=== PATIENT | female | born 1975 | race Caucasian/White ===

== ENCOUNTER 2022-10-10 11:28 | Outpatient (CLI) | payer BC, SELFPAY ==
[2022-10-10 13:48] LABS: Clue Cells No Clue Cells Seen (None Seen); Trichomonas No Trichomonas Seen (None Seen); Yeast No Yeast Seen (None Seen)
== END 2022-10-10 11:29 | disposition home or self-care (01) ==
PROVIDERS: PCP Family Medicine; Visit Provider Family Medicine
DX: N89.8 Other specified noninflammatory disorders of vagina (principal)
CPT/HCPCS: 87109; 87210

== ENCOUNTER 2023-12-18 09:24 | Outpatient (CLI) | payer BC, SELFPAY ==
--- OUTSIDE RECORDS SUMMARY | 2023-12-18 09:29 | XMS_ITS | Encounter Summary ---
Author Name Unknown Organization [facility] Address [address] [place] [address] Care Team Providers Care Grinding Supervisor Name Role Phone Unavailable Primary Care Provider Unavailabl e Reason for Visit * Reason Onset Date Comments Vaginal Discharge 06/07/2023 Encounter Details Date Type Department Care Team (Late st Contact Info) Description 06/07/2023 Nurse Triage Department of Family Medicine, [facility], in [place], [place] [address] [place] [phone] Jessy Alegria R.N. [address] [place] [phone] Vaginal Discharge Social History Tobacco Use Types Packs/Day Years Used Date Smoking Tobacco: Every Day Cigarettes 0.5 Smokeless Tobacco: Never Alcohol Use Standard Drinks/Week Comments Yes 0 (1 standard drink = 0.6 oz pur e alcohol) Nutrition Answer Date Recorded Nutrition: EVOO Fat Source Unknown 01/19 Nutrition: Servings of Fruits/Vegetables per Day Not on file 01/19/2021 Dental Answer Date Recorded Dental: Regular Dentist Unknown 01/20/20 21 Sex and Gender Information Value Date Recorded Sex Assigned at Not on file Gender Identity Not on file Sexual Orientation Not on file documented as of this encounter Miscellaneous Notes * Telephone Encounter - Jessy Alegria R.N. - 06/07/2023 12:44 PM CDT Chief Complaint / Reason for Call Patient is a 47 y.o. female calling regarding Vaginal Discharge. Assessment Concern: States believes may have BV, reports vaginal discharge that smells foul, reports some associated intermittent pelvic pain & night sweats, denies fever, denies itching, denies pain with urination Present for: 3 days Home cares tried: nothing Calling to request: appointment The recommended disposition is See a health care provider within 24 hours. Patient was warm transferred toNaida Patient Appointment Director Supply Chain at the clinic for further assistance. If clinic appointment is not available in the next 24 hours, caller is advised tayler seen in emergency department. Care Advice Patient/Caregiver understands and will follow care advice?: Yes, able to teach back SEE PCP WITHIN 24 HOURS: * IF OFFICE WILL BE OPEN: You need to be examined within the next 24 hours. Call your doctor (or SCHEDULING MANAGER/PA) when the office opens and make an appointment. * IF OFFICE WILL BE CLOSED: You need to be seen within the next 24 hours. A clinic or an urgent care center is often a good source of care if your doctor's office is closed or you can't get an appointment. * IF PATIENT HAS NO PCP: Refer patient to a clinic or urgent care center. Also try to help caller find a PCP for future care. NOTE TO TRIAGER: * Use nurse judgment to select the most appropriate source of care. * Consider both the urgency of the patient's symptoms AND what resources may be needed to evaluate and manage the patient. DO NOT: * DO NOT DOUCHE. Douching does not help vaginitis, and may actually make it worse. * DO NOT USE ANY VAGINAL CREAMS during the 24 hours before your physician appointment. Reason: interferes with examination. NOTE TO TRIAGER - PREVENTION OF SEXUALLY TRANSMITTED INFECTION (STI): * Tell patient to either (1) not have sexual intercourse or (2) be sure the partner uses a condom until the problem has been diagnosed and treated. * If an STI is strongly suspected, encourage caller to tell the sexual partner to also obtain a medical evaluation. NOTE TO TRIAGER - REFERRAL TO [facility] DEPARTMENT - NO DOCTOR: * If the patient doesn't have a doctor (or SCHEDULING MANAGER/PA), it may be helpful to provide the phone number ofa [facility] * PHONE NUMBER for sexually transmitted infection (STI) clinic at [facility] [id number]. Reason for Disposition [1] Mild lower abdominal pain comes and goes (cramps) AND [2] lasts > 24 hours Protocols used: Vaginal [id number] documented in this encounter Plan of Treatment Not on file documented as of this encounter Visit Diagnoses Not on filedocumented in this encounter Additional Health Concerns Assessment Noted Time PHQ-9 Depression Total Score: 3 03/05/20 13 3:18 PM CDT documented as of this encounter
--- OUTSIDE RECORDS SUMMARY | 2023-12-18 09:29 | XMS_ITS | Encounter Summary ---
Author Name Unknown Organization [facility] Address [address] [place] [address] Care Team Providers Care Willow Machine Operator Name Role Phone Unavailable Primary Care Provider Unavailabl e Encounter Details Date Type Department Care Team (Late st Contact Info) Description 07/18/2023 Clinical Communication Department of Obstetrics and Gynecology in [address] [place] [address] Caprice Molina, PROPERTY AND EQUIPMENT CLERK, C.N.P. [address], [place] [phone] Social History Tobacco Use Types Packs/Day Years [...] encounter Miscellaneous Notes * Telephone Encounter - Miguel Levine R.N. - 07/18/2023 3:56 PM CDT Patient had questions about labs ordered on visit at 07/12. Specifically she wanted to know about another vitamin B lab other than the B12 Assay that is ordered. documented in this encounter Plan of Treatment Not on file documented as of this encounter Visit Diagnoses Not on filedocumented in this encounter Additional Health Concerns Assessment Noted Time PHQ-9 Depression Total Score: 3 03/05/20 13 3:18 PM CDT documented as of this encounter
--- OUTSIDE RECORDS SUMMARY | 2023-12-18 09:29 | XMS_ITS | Encounter Summary ---
Author Name Unknown Organization [facility] Address [address] [place] [address] Care Team Providers Care Rug Drying Machine Operator Name Role Phone Unavailable Primary Care Provider Unavailabl e Encounter Details Date Type Department Care Team (Late st Contact Info) Description 07/17/2023 Orders Only Department of Obstetrics and Gynecology in [place], [place] [address] [place] [address] Caprice Molina, CHILD PSYCHOMETRIST, C.N.P. [address] [place] [phone] Infection Ureaplasma (Primary Dx) Social History Tobacco Use Types Packs/Day Years [...] on file documented as of this encounter Plan of Treatment Not on file documented as of this encounter Visit Diagnoses Diagnosis Infection Ureaplasma- Primary documented in this encounter Additional Health Concerns Assessment Noted Time PHQ-9 Depression Total Score: 3 03/05/20 13 3:18 PM CDT documented as of this encounter
--- OUTSIDE RECORDS SUMMARY | 2023-12-18 09:29 | XMS_ITS | Clinical Summary ---
Author Name Unknown Organization [facility] Address [address] [place] [address] Care Team Providers Care Block Splitter Operator Name Role Phone Unavailable Primary Care Provider Unavailabl e Source Comments Patient records contain information from all sites at [facility]. For routine questions regarding patient records, call [phone] during business hours, M-F 8:00 AM - 5:00 PM Central Time. Record requests for emergency care only can be directed to [phone] at any time.[facility] Allergies Active Allergy Reactions Criticality Noted Date Comments Doxycycline Monohydrate Rash 10/25/2022 Amoxicillin Rash 01/08/2008 doesn't feel well Ciprofloxacin Rash 08/03/2009 Influenza Virus Vaccines Other (see comments) High 05/20/2019 Family member from the influenza vaccine. Advised to not get vaccinated against flu. Levofloxacin Rash 07/27/2016 Medications Medication Sig Dispensed Refills Start Date End Date Status albuterol 90 mcg/actuation inhaler Inhale. 0 08/15/2018 Active DULoxetine (CYMBALTA) [address] capsule Take 60 mg by mouth. 0 11/20/2019 Acti ve ibuprofen (ADVIL,MOTRIN) 800 mg tablet Take 800 mg by mouth. 0 03/12/2018 Active LORazepam (ATIVAN) 2 mg tablet TK 1 T PO HS 0 07/20/2020 Active rizatriptan SENIOR ELECTRICAL DESIGN ENGINEER (MAXALT-SENIOR ELECTRICAL DESIGN ENGINEER) [address] 10 mg under the tongue. 0 06/04/2018 Active cetirizine-pseudoeph edrine (ZyrTEC-D 12-hour) 5-120 mg per 12 hr tablet Take 1 tablet by mouth 2 (two) times a day. 0 Active olopatadine (PATADAY) 0.2 % ophthalmic solution 0 07/22/2022 Activ e cholecalciferol, vitamin D3, (cholecalciferol) 25 mcg (1,000 Unit) tablet Take 25 mcg by mouth daily. 0 Active metroNIDAZOLE (METROGEL) 0.75 % (37.5mg/5 gram) vaginal gelIndications:Vagin osis Bacterial Insert 1 applicatorful intravaginally at bedtime weekly for 3-6 months. 70 g 3 07/12/2023 Active azithromycin (ZITHROMAX) 500 mg tabletIndications:In fection Ureaplasma Take 1000 mg (2 tabs) on day 1, followed by 500 mg (1 tab) once daily on days 2 through 4. 5 tablet 0 07/17/2023 Active Active Problems Problem Noted Date Diagnosed Date Urinary Urge Incontinence 07/27/2022 Other Specified Menopausal And Perimenopausal Di sorders 09/09/2020 Immunizations Name Administration Dates Next Due PPSV23 11/13/2017 Tdap 11/25/2010 Family History Medical History Relation Name Comments Emphysema Mother Stroke Mother Relation Name Status Comments Mother Social History Tobacco Use Types Packs/Day Years Used Date Smoking Tobacco: Every Day Cigarettes 0.5 Smokeless Tobacco: Never Tobacco Cessation:Ready to Q uit: Not Asked; Counseling Given: Not Answered Alcohol Use Standard Drinks/Week Comments Yes 0 [...] on file Sexual Orientation Not on file Last Filed Vital Signs Vital Sign Reading Time Taken Comments Blood Pressure 100/54 07/12/2023 11:31 AM CDT Pulse 71 06/07/2023 3:51 PM CDT Temperature 36.3 ??C (97.4 ??F) 06/07/2023 3:51 PM CD T Respiratory Rate 16 06/07/2023 3:51 PM CDT Oxygen Saturation - - Inhaled Oxygen Concentration - - Weight 72.1 kg (159 lb 1 oz) 07/12/2023 11:31 AM CDT Height 158 cm (5' 2.21) 09/21/2017 1:38 AM CDT Body Mass Index 28.9 09/21/2017 1:38 AM CDT Plan of Treatment Health Maintenance Due Date Last Done Comments CT Colonography 1974 Cologuard 1974 Colonoscopy 1974 Colorectal Cancer Screening 1974 FIT 1974 Hepatitis B Vaccines (1 of 3 - 3-dose series) 1974 COVID-19 Vaccine (#1) 1974 Pneumococcal vaccine (0-64 y ears) (2 of 2 - PCV) 11/13/2018 11/13/2017 DTaP,Tdap,and Td Vaccines (2 - Td or Tdap) 11/25/2020 11/25/2010 Lipid (Cholesterol) Screening 03/24/2021 03/24/2016 Tobacco Cessation counseling 07/27/2023 07/27/2022 Depression Screening (Annual PHQ-2) 11/19/2023 Mammogram 02/22/2024 02/21/2023, 11/19, 11/08/2020, Additional history exists Fasting Glucose for Diabetes Screening 07/27/2025 07/27/2022, 07/27/2022, 12/11/2020, Additional history exists
--- OUTSIDE RECORDS SUMMARY | 2023-12-18 09:29 | XMS_ITS | Encounter Summary ---
Author Name Unknown Organization [facility] Address [address] [place] [address] Care Team Providers Care Retoucher Name Role Phone Unavailable Primary Care Provider Unavailabl e Reason for Visit * Reason Comments Vaginal Discharge With strong odor and yellowish discharge x 3-4 days * Appointment Request (Routine) - Closed Specialty Diagnoses / Procedures Referred By Kyle chase Referred To Contact Family Medicine Referral ID Status Reason Start Date Expiration Date Visits Re quested Visits Authorized [id number] Closed 06/07/2023 06/06/2024 1 1 Encounter Details Date Type Department Care Team (Late st Contact Info) Description 06/07/2023 4:00 PM CDT Office Visit Department of Family Medicine, [facility], in [place], [place] [address] [phone] Pipe Quiroga, P.A.-Polly., P.A. [address] [phone] Discharge Vaginal (Primary Dx); Vaginosis Bacterial Social History Tobacco Use Types Packs/Day Years [...] on file documented as of this encounter Last Filed Vital Signs Vital Sign Reading Time Taken Comments Blood Pressure 104/68 06/07/2023 3:51 PM CDT Pulse 71 06/07/2023 3:51 PM CDT Temperature 36.3 ??C (97.4 ??F) 06/07/2023 3:51 PM CD T Respiratory Rate 16 06/07/2023 3:51 PM CDT Oxygen Saturation - - Inhaled Oxygen Concentration - - Weight 72.4 kg (159 lb 9.8 oz) 06/07/2023 3:51 P M CDT Height - - Body Mass Index 29 09/21/2017 1:38 AM CDT documented in this encounter Patient Instructions * Attachments The following attachments cannot be sent through Care Everywhere. * Vaginal Health (Cuban) documented in this encounter Progress Notes * Pipe Quiroga, Samanta-Polly., P.A. - 06/07/2023 4:00 PM CDT SUBJECTIVE CHIEF COMPLAINT / REASON FOR VISIT Aamir Landon is a 47 y.o. female who presents for evaluation of Vaginal Discharge (With strong odor and yellowish discharge x 3-4 days ). HISTORY OF PRESENT ILLNESS Patient is a pleasant well-appearing 47-year-old female presenting clinic today with concerns for strong foul smelling yellowish discharge from the vagina with lower abdominal pain. Symptoms for 4 days unchanged. Started with hot and cold flashes initially but least from massage resolved. Has not had a fever. Mentions dry cough about the same time symptoms started but this is subsided substantiall y. Denies any bleeding. No genital sores. No nausea vomiting diarrhea, constipation. No urinary symptoms. Denies flank pain but mentions some generalized lower back pain she relates to bending over gardening. Denies possibility of and no history or concerns for STDs. Not sexually active. She does have a history of yeast infections and bacterial vaginosis. Treatment with tea tree oil REVIEW OF SYSTEMS All other systems reviewed and are negative. OBJECTIVE PHYSICAL EXAM Vitals and nursing note reviewed. Exam conducted with a php software engineer present (Pat Alisa). Constitutional General: She is not in acute distress. Appearance: Normal appearance. She is not ill-appearing. HENT Head: Normocephalic and atraumatic. Right Ear: Tympanic membrane, ear canal and external ear normal. Left Ear: Tympanic membrane, ear canal and external ear normal. Nose: Nose normal. Mouth/Throat: Mouth: Mucous membranes are moist. Pharynx: Oropharynx is clear. Eyes General: No scleral icterus. Conjunctiva/sclera: Conjunctivae normal. Pupils: Pupils are equal, round, and reactive to light. Cardiovascular Rate and Rhythm: Normal rate and regular rhythm. Heart sounds: Normal heart sounds. No murmur heard. No friction rub. No gallop. Pulmonary Effort: Pulmonary effort is normal. Breath sounds: Normal breath sounds. No wheezing, rhonchi or rales. Abdominal General: Bowel sounds are normal. There is no distension. Palpations: Abdomen is soft. There is no mass. Tenderness: There is no abdominal tenderness. There is no right CVA tenderness, left CVA tendernessor guarding. Genitourinary Labia: Right: No lesion. Left: No lesion. Vagina: Vaginal discharge (Copious thick white malodor) present. Musculoskeletal Cervical back: Normal range of motion and neck supple. Lymphadenopathy Cervical: No cervical adenopathy. Skin General: Skin is warm and dry. Neurological Mental Status: She is alert. ASSESSMENT / PLAN #1 Discharge Vaginal Shared with the patient the exam findings and concerns. Did will obtain vaginitis panel. Discussed with the patient etiology and prognosis of Trichomonas, bacterial vaginosis, yeast. Also discussed treatments for each of these as well as proper use of medication was possible side effects. Will hold off on prescription pending test results. Will call the patient and notify of test results and confirmed treatment plan at that point. If test results negative advise symptomatic care close monitoring of symptoms. Discussed hand hygiene, bathroom etiquette, feminine hygiene. If symptoms worsen or do not improve, they are to seek further medical attention. Patient's questions were answered. They voiced understanding and agree to this plan. Pipe Quiroga P.A.-C., P.A. Addendum 06/07/2023 at 6:08 p.m. Patient notified via telephone of test results positive for bacterial vaginosis. Confirmed the etiology prognosis of bacterial vaginosis as well as treat with metronidazole. Shared his proper use possible side effects. Advise hand hygiene, bathroom hygiene, feminine hygiene. Advise if symptoms persist following up with primary care OB Gyne. Questions answered. She voiced understanding and agrees this plan. Pipe Quiroga PA-C documented in this encounter Plan of Treatment Not on file documented as of this encounter Procedures Procedure Name Priority Date/Time Associated Diagnosis Comments VAGINITIS PANEL Routine 06/07/2023 4:26 PM CDT Discharge Vaginal documented in this encounter Results * (ABNORMAL) Vaginitis Panel (06/07/2023 4:26 PM CDT) Marium species, DNA Negative Negative 06/07/2023 5:28 PM CDT OWAT Gardnerella vaginalis, DNA Positive(A) Negative 06/07/2023 5:28 PM CDT OWAT Trichomonas vaginalis, DNA Negative Negative 06/07/2023 5:28 PM CDT OWAT Swab (Vagina) 06/07/2023 4:2 6 PM CDT 06/07/2023 4:35 PM CDT Pipe Quiroga P.A.-C., P.A. [facility] - GENERAL ORDERABLES [facility] [address] [place] [address], [facility] OWAT [facility] in [place] [address] [place] [address] documented in this encounter Visit Diagnoses Diagnosis Discharge Vaginal- Primary Vaginosis Bacterial documented in this encounter Additional Health Concerns Assessment Noted Time PHQ-9 Depression Total Score: 3 03/05/20 13 3:18 PM CDT documented as of this encounter
--- OUTSIDE RECORDS SUMMARY | 2023-12-18 09:29 | XMS_ITS | Encounter Summary ---
Author Name Unknown Organization [facility] Address [address] [place] [address] Care Team Providers Care Airline Stewardess Name Role Phone Unavailable Primary Care Provider Unavailabl e Reason for Visit * Reason Onset Date Comments Results 07/13/2023 Vaginitis panel Encounter Details Date Type Department Care Team (Latest Contact Info) Description 07/13/2023 Clinical Communication Department of Obstetrics and Gynecology in [place], [place] [address] [phone] Caprice Molina, NARCISO, C.N.P. [address] [phone] Results (Vaginitis panel/) Social History Tobacco Use Types Packs/Day Years [...] encounter Miscellaneous Notes * Telephone Encounter - Jacklyn Fox R.N. - 07/13/2023 1:30 PM CDT Results sent via the portal to patient. Portal message not read. Advisement to the patient given from Caprice Molina per result note on 07/12/23 Tom Andersone, As we suspected, your bacterial vaginosis results came back positive while your yeast and Trichomonas results was negative. The prescription for metronidazole that was faxed in is appropriate. I willalso now faxed in the prophylactic long- term therapy to reduce the risk of recurrence going forward. Please let me know if you have any questions or concerns. I will plan to send another message whenI receive the rest of your results. Thanks, Caprice Molina APRN, SAFETY RELIEF VALVE TECHNICIAN documented in this encounter Plan of Treatment Not on file documented as of this encounter Visit Diagnoses Not on filedocumented in this encounter Additional Health Concerns Assessment Noted Time PHQ-9 Depression Total Score: 3 03/05/20 13 3:18 PM CDT documented as of this encounter
--- OUTSIDE RECORDS SUMMARY | 2023-12-18 09:29 | XMS_ITS | Encounter Summary ---
Author Name Unknown Organization [facility] Address [address] [place] [address] Care Team Providers Care Cutter Grinder Operator Name Role Phone Unavailable Primary Care Provider Unavailabl e Encounter Details Date Type Department Care Team (Late st Contact Info) Description 06/07/2023 Orders Only Department of Family Medicine, [facility], in [place], [place] [address] [phone] Pipe Quiroga, Samanta-Polly., P.A. [address] [phone] Social History Tobacco Use Types Packs/Day Years [...]
--- OUTSIDE RECORDS SUMMARY | 2023-12-18 09:29 | XMS_ITS | Referral Summary ---
Author Name Unknown Organization [facility] Address [address] [place] [address] Care Team Providers Care Staining Machine Operator Name Role Phone Unavailable Primary Care Provider Unavailabl e Source Comments Patient records contain information from all sites at [facility]. For routine questions regarding patient records, call [phone] during business hours, M-F 8:00 AM - 5:00 PM Central Time. Record requests for emergency care only can be directed to [phone] at any time.[facility] Allergies Active Allergy Reactions Criticality Noted [...] T PO HS 0 07/20/2020 Active rizatriptan MANAGER GENERAL (MAXALT-MANAGER GENERAL) [address] 10 mg [...] Dates Next Due PPSV23 11/13/2017 Tdap 11/25/2010 Social History Tobacco Use Types Packs/Day Years [...] 09/21/2017 1:38 AM CDT Plan of Treatment Not on file
--- OUTSIDE RECORDS SUMMARY | 2023-12-18 09:29 | XMS_ITS | Encounter Summary ---
Author Name Unknown Organization [facility] Address [address] [place] [address] Care Team Providers Care Technician Name Role Phone Unavailable Primary Care Provider Unavailabl e Reason for Visit * Reason Onset Date Comments Order Request 07/12/2023 Encounter Details Date Type Department Care Team (Late st Contact Info) Description 07/12/2023 Clinical Communication Department of Obstetrics and Gynecology in [place], [place] [address] [place] [phone] Caprice Molina, SAMPLE BODY BUILDER, C.N.P. [address], [place] [phone] Order Request Social History Tobacco Use Types Packs/Day Years [...] encounter Miscellaneous Notes * Telephone Encounter - Ritu Patricia R.N. - 07/12/2023 9:48 AM CDT Advised that note was made on appointment that she would like to have blood work obtained today documented in this encounter Plan of Treatment Not on file documented as of this encounter Visit Diagnoses Not on filedocumented in this encounter Additional Health Concerns Assessment Noted Time PHQ-9 Depression Total Score: 3 03/05/20 13 3:18 PM CDT documented as of this encounter
--- OUTSIDE RECORDS SUMMARY | 2023-12-18 09:29 | XMS_ITS | Encounter Summary ---
Author Name Unknown Organization [facility] Address [address] [place] [address] Care Team Providers Care City Planning Aide Name Role Phone Unavailable Primary Care Provider Unavailabl e Reason for Visit * Reason Comments Vaginitis/Bacterial Vaginosis * Appointment Request (Routine) - Closed Specialty Diagnoses / Procedures Referred By Kyle t Referred To Contact Obstetrics and Gynecology Referral ID Status Reason Start Date Expiration Date Visits Re quested Visits Authorized [id number] Closed 07/12/2023 07/11/2024 1 1 Encounter Details Date Type Department Care Team (Late st Contact Info) Description 07/12/2023 11:30 AM CDT Office Visit Department of Obstetrics and Gynecology in [place], [place] [address] [place] [address] Caprice Molina, BUSINESS RESILIENCY MANAGER, C.N.P. [address] [phone] Fatigue (Primary Dx); Acute Vaginitis Discharge Disposition: Home or Self Care Social History Tobacco Use Types Packs/Day Years Used Date Smoking Tobacco: Every Day Cigarettes 0.5 Smokeless Tobacco: Never Tobacco Cessation:Ready to Q uit: Not Asked; Counseling Given: Not Answered Alcohol Use Standard Drinks/Week Comments Yes 0 (1 standard drink = 0.6 oz pur e alcohol) Nutrition Answer Date Recorded Nutrition: EVOO Fat Source Unknown 03/03 /2021 Nutrition: Servings of Fruits/Vegetables per Day Not [...] Pressure 100/54 07/12/2023 11:31 AM CDT Pulse - - Temperature - - Respiratory Rate - - Oxygen Saturation - - Inhaled Oxygen Concentration - - Weight 72.1 kg (159 lb 1 oz) 07/12/2023 11:31 AM CDT Height - - Body Mass Index 28.9 09/21/2017 1:38 AM CDT documented in this encounter Progress Notes * Caprice Molina, NARCISO, C.N.P. - 07/12/2023 11:30 AM CDT SUBJECTIVE Chief Complaint Patient presents with Vaginitis/Bacterial Vaginosis HISTORY OF PRESENT ILLNESS Aamir is a 48 y.o. , No LMP recorded. Patient has had a hysterectomy. She presents with concerns surrounding recurrent vaginitis. She was treated in May for bacterial vaginosis. She does have history of recurrent bacterial vaginosis and also was treated for ureaplasma infection in October,. Notes that she is having some vaginal irritation, which is typically the 1st signed she experie nces when she has a recurrent BV infection. She also notes that she has been fatigued recently. She is wondering if she may be vitamin deficient. I have ordered the lab work as she requested. REVIEW OF SYSTEMS Constitutional: Positive for fatigue. The following systems were negative: Skin, Eyes, ENT, Respiratory, Cardiovascular, Gastrointestinal, Genitourinary, Hematologic, Musculoskeletal, Neurological, Psychiatric The patient's allergies, current medications, and problem list were reviewed and updated as appropriate. OBJECTIVE BP (!) 100/54 Wt 72.1 kg BMI 28.90 kg/m?? PREVENTATIVE HEALTH Last Pap Result Date: PHYSICAL EXAM General: She is a well-appearing female, in no acute distress. SKIN: Warm, dry and pink. No rashes, lesions or bruising. HEENT: Vision and hearing grossly intact. Lymph Nodes: No inguinal lymphadenopathy. No masses or tenderness. Abdomen: Soft, nontender, nondistended. No masses palpable. Pelvis: External genitalia appears healthy and normal. BUS is negative. Upon speculum exam vaginal mucosa appears red and intact. There is some creamy discharge noted throughout the vagina. Vaginitispanel obtained. Extremities: Lower extremities are nontender. No edema. Gait normal. Mental: Alert and oriented x3. Affect pleasant. Mood happy. City Weighmaster: Osiris Kaur, ANJELICA ASSESSMENT / PLAN #1 Fatigue - Vitamin B12 Assay; Future; Expected date: 07/12/2024 - Folate; Future; Expected date: 07/12/2024 - Vitamin D, Immunoassay, Total, Serum; Future; Expected date: 07/12/2023 - Hemoglobin; Future; Expected date: 07/12/2023 - Ferritin; Future; Expected date: 07/12/2023 #2 Acute Vaginitis - Vaginitis Panel - Ureaplasma PCR - metroNIDAZOLE (FLAGYL) 500 mg tablet; Take 1 tablet (500 mg total) by mouth 2 (two) times a day for 7 days. Do not consume alcohol while taking this medication., Starting Leslee 07/12/2023, Until Leslee 07/19/2023, Normal Will plan to call her at [phone] with her results and we will treat accordingly. I did send reji prescription for oral metronidazole to get her started, as exam findings are indicative of bacterial vaginosis. We also discussed utilizing prophylactic treatment for 2-3 months going forward. She w ould be interested in doing this with insertion of Metrogel vaginally weekly. I will also be sure and call her when I receive the rest of her lab results and we will treat accordingly. All questions have been answered and those present are in agreement with this plan. Caprice Molina APRN, C.N.P. documented in this encounter Plan of Treatment Scheduled Orders Name Type Priority Associated Diagnoses Orde r Schedule Vitamin B12 Assay Lab Routine Fatigue Expected: 07/12/2024, Expires: 07/12/2026 Folate Lab Routine Fatigue Expected: 07/12/2024, Expires: 07/12/2026 Vitamin D, Immunoassay, Total, Serum Lab Routine Fatigue Expected: 07/12/2023 (Approximate), Expires: 10/12/2024 Hemoglobin Lab Routine Fatigue Expected: 07/12/2023 (Approximate), Expires: 10/12/2024 Ferritin Lab Routine Fatigue Expected: 07/12/2023 (Approximate), Expires: 10/12/2024 documented as of this encounter Procedures Procedure Name Priority Date/Time Associated Diagnosis Comments VAGINITIS PANEL Routine 07/12/2023 11:48 AM CDT Acute Vaginitis UREAPLASMA PCR Routine 07/12/2023 11:48 AM CDT Acute Vaginitis documented in this encounter Results * (ABNORMAL) Ureaplasma PCR (07/12/2023 11:48 AM CDT) Specimen Source Swab, Vagina 07/14/2023 9:06 AM CDT DTL Ureaplasma urealyticum PCR Negative Not Applicable 07/14/2023 9:06 AM CDT DTL Ureaplasma parvum PCR Positive(A) Not Applicable 07/14/2023 9:06 AM CDT DTL Comment: ----ADDITIONAL INFORMATION---- This test was developed and its performance characteristics determined by [facility] in a manner consistent with CLIA requirements. This test has not been cleared or approved by the U.S. Food and Drug Administration. Swab (Vagina) 07/12/2023 11: 48 AM CDT 07/12/2023 10:27 PM CDT Caprice Molina APRN, C.N.P. LAB MICRO BIOLOGY - GENERAL ORDERABLES [facility] [address] [place] [address], [facility] [address] [place] [address] * (ABNORMAL) Vaginitis Panel (07/12/2023 11:48 AM CDT) Marium species, DNA Negative Negative 07/12/2023 3:56 PM CDT FB60 Gardnerella vaginalis, DNA Positive(A) Negative 07/12/2023 3:56 PM CDT FB60 Trichomonas vaginalis, DNA Negative Negative 07/12/2023 3:56 PM CDT FB60 Swab (Vagina) 07/12/2023 11: 48 AM CDT 07/12/2023 2:51 PM CDT Caprice Molina APRN C.N.P. LAB MICRO BIOLOGY - GENERAL ORDERABLES [facility] [address] [place] [address], [facility] FB60 [facility] in [place] [address] [place] [address] documented in this encounter Visit Diagnoses Diagnosis Fatigue- Primary Acute Vaginitis documented in this encounter Additional Health Concerns Assessment Noted Time PHQ-9 Depression Total Score: 3 03/05/20 13 3:18 PM CDT documented as of this encounter
--- OUTSIDE RECORDS SUMMARY | 2023-12-18 09:29 | XMS_ITS ---
Author Name Unknown Organization [facility] Address [address] [place] [address] Care Team Providers Care Grease Maker Name Role Phone Unavailable Unavailable Unavailable Surgery Details Not on file Complications Check Surgery Details section. Procedure Estimated Blood Loss Check Surgery Details section. Procedure Findings Check Surgery Details section. Procedure Specimens Taken Check Surgery Details section.
--- OUTSIDE RECORDS SUMMARY | 2023-12-18 09:29 | XMS_ITS | Encounter Summary ---
Author Name Unknown Organization [facility] Address [address] [place] [address] Care Team Providers Care Tapering Machine Operator Name Role Phone Unavailable Primary Care Provider Unavailabl e Reason for Visit * Reason Onset Date Comments Vaginitis/Bacterial Vaginosis 06/07/2023 Encounter Details Date Type Department Care Team (Late st Contact Info) Description 06/07/2023 Nurse Triage Department of Family Medicine, [facility], in [place] [address] [place] [address] Katie Avalos, R.N. Vaginitis/Bacterial Vaginosis Social History Tobacco Use Types Packs/Day Years [...] encounter Miscellaneous Notes * Telephone Encounter - Katie Avalos, R.N. - 06/07/2023 12:31 PM CDT Chief Complaint / Reason for Call Patient is a 47 y.o. female calling regarding Vaginitis/Bacterial Vaginosis. Assessment Home cares tried: Rest Calling to request: Advice, make an appointment. The recommended disposition is See a health care provider within 3 days. If clinic appointment is not available in the next 3 days, caller is advised to be seen in urgent care. Patient willing to go to [place] as well. Symptoms: yellow foul smelling discharge. Location: Vaginal Onset: 3 days Pain: slight lower abdominal pain. Itching: Denies Other symptoms: Denies: fever, itching, vaginal bleeding, pain with urination, injury to genital area. Reason for Disposition [1] Vaginal odor (bad smell) AND [2] not improved > 3 days following CARE ADVICE Protocols used: Vaginal [id number] Care Advice Patient/Caregiver understands and will follow care advice?: Yes, able to teach back SEE PCP WITHIN 3 DAYS: * You need to be seen within 2 or 3 days. * PCP VISIT: Call your doctor (or FILAMENT MAKER/PA) during regular office hours and make an appointment. A clinic or urgent care center are good places to go for care if your doctor's office is closed or you can't get an appointment. NOTE: If office will be open tomorrow, tell caller to call then, not in 3 days. * IF PATIENT HAS NO PCP: A clinic or urgent care center are good places to go for care if you do not have a primary care provider. NOTE: Try to help caller find a PCP for future care (e.g., use a physician referral line). Having a PCP or 'medical home' means better long-term care. GENITAL HYGIENE: * Keep your genital area clean. Use mild soaps, but do not use them on your vulva. Wash the vulva area only with water. Gently pat the vulva area dry after washing. * Keep your genital area dry. Wear cotton underwear or underwear with a cotton crotch. * Use unscented 100% cotton menstrual pads. * Use adequate lubrication for sexual intercourse. * DO NOT douche. * DO NOT use feminine hygiene products or perfumed soaps. CALL BACK IF: * Rash or severe itching * Yellow or green vaginal discharge * Foul smelling vaginal discharge * You become worse documented in this encounter Plan of Treatment Not on file documented as of this encounter Visit Diagnoses Not on filedocumented in this encounter Additional Health Concerns Assessment Noted Time PHQ-9 Depression Total Score: 3 03/05/20 13 3:18 PM CDT documented as of this encounter
--- OUTSIDE RECORDS SUMMARY | 2023-12-18 09:29 | XMS_ITS | Encounter Summary ---
Author Name Unknown Organization [facility] Address [address] [place] [address] Care Team Providers Care Pet Sitter Name Role Phone Unavailable Primary Care Provider Unavailabl e Encounter Details Date Type Department Care Team (Late st Contact Info) Description 07/12/2023 Orders Only Department of Obstetrics and Gynecology in [address] [phone] Caprice Molina, ACADEMIC COUNSELOR, C.N.P. [address] [place] [phone] Acute Vaginitis (Primary Dx); Vaginosis Bacterial Social History Tobacco [...] as of this encounter Visit Diagnoses Diagnosis Acute Vaginitis- Primary Vaginosis Bacterial documented in this encounter Additional Health Concerns Assessment Noted Time PHQ-9 Depression Total Score: 3 04/17/20 13 3:18 PM CDT documented as of this encounter
--- OUTSIDE RECORDS SUMMARY | 2023-12-18 09:30 | XMS_ITS | Clinical Summary ---
Author Name Unknown Organization [email or web address] [facility] Address [place], [place] [address] Care Team Providers Care Arranging Funeral Director Name Role Phone Kris Irvin MD Primary Care Provider + Allergies Active Allergy Reactions Criticality Noted Date Comments Amoxicillin Rash 01/08/2008 doesn't feel well doesn't feel well Ciprofloxacin Rash 08/03/2009 Doxycycline Monohydrate Rash 10/25/2022 Influenza Virus Vaccines *Unknown High 05/20/2019 Family member from the influenza vaccine. Advised to not get vaccinated against flu. Levofloxacin Rash 07/27/2016 Medications Medication Sig Dispensed Refills Start Date End Date Status ibuprofen (ADVIL; MOTRIN) 800 mg tabletIndications:C hronic neck pain TAKE 1 TABLET BY MOUTH THREE TIMES DAILY NEEDED 270 tablet 3 8 Active rizatriptan (MAXALT INSURANCE ANALYST) 10 mg disintegrating tabletIndications:M igraine without status migrainosus, not intractable, unspecified migraine type Place 1 tablet on the tongue 2 times daily if needed for Migraine. Give at minimum 2hrs apart. Max Dose: 30mg per 24hrs. 9 tablet 10 8 Active VENTOLIN HFA 90 mcg/actuation inhalerIndications: Mild intermittent asthma with acute exacerbation INHALE 1 TO 2 PUFFS BY MOUTH EVERY 4 HOURS NEEDED 18 g 3 8 Active LORazepam (ATIVAN) 1 mg tabletIndications:G eneralized anxiety disorder Take 1 tab daily as needed for anxiety. 20 tablet 0 9 Active cetirizine-pseudoep hedrine, 5-120 mg, (ZYRTEC-D) 5-120 mg tablet Take 1 tablet by mouth. 0 Active medication order composer EYE ALLERGY ITCH REL 0.2% OPHTH EVELYN 0 2 Active cholecalciferol (VITAMIN D3) 1,000 unit tablet Take 25 mcg by mouth. 0 Active albuterol-ipratropi um (DUONEB) (2.5-0.5 mg) in 3 mL NEBULIZATION solutionIndications :Bronchitis Inhale 3 mL via a nebulizer every 6 hours if needed for Shortness Of Breath or Wheezing. 90 mL 2 4 Active metroNIDAZOLE 0.75% vaginal (METROGEL) 0.75 % vaginal gel INSERT 1 APPLICATORFUL VAGINALLY AT BEDTIME FOR 5 DAYS 0 1 11/30/19 24 Discontinu ed(*Patien t states no longer taking) metroNIDAZOLE (FLAGYL) 500 mg tablet Take 500 mg by mouth 2 times daily. 0 1 11/30/19 24 Discontinu ed(*Patien t states no longer taking) DULoxetine (CYMBALTA) 60 mg Delayed-release capsule Take 60 mg by mouth. 0 0 11/30/19 24 Discontinu ed(*Patien t states no longer taking) clindamycin (CLEOCIN) 300 mg capsule 0 2 11/30/19 24 Discontinu ed(*Patien t states no longer taking) ergocalciferol (VITAMIN D2; DRISDOL) 50,000 unit capsule Take 50,000 units by mouth once weekly. 0 2 11/30/19 24 Discontinu ed(*Patien t states no longer taking) Pataday Once Daily Relief 0.7 % ophthalmic solution INSTILL 1 DROP IN AFFECTED EYE(S) EVERY DAY 0 3 11/30/19 24 Discontinu ed(*Patien t states no longer taking) albuterol-ipratropi um (DUONEB) (2.5-0.5 mg) in 3 mL NEBULIZATION solutionIndications :Bronchitis Inhale 3 mL via a nebulizer every 6 hours if needed for Shortness Of Breath or Wheezing. 90 mL 0 3 11/30/19 24 Discontinu ed(Reorder (E-cancel not sent)) Active Problems Problem Noted Date Diagnosed Date Allergic rhinitis 11/28/2018 RLS (restless legs syndrome) 11/28/2018 Insomnia, idiopathic 11/28/2018 Recurrent major depressive disorder 11/28/2018 Attention deficit hyperactiv ity disorder (ADHD), predominantly inattentive type 06/09/2015 Major depressive disorder, recurrent episode, mo derate 06/09/2015 Vitamin D deficiency 07/16/2014 Mild intermittent asthma 01/15/2013 Generalized anxiety disorder 10/14/2012 Pain medication agreement 04/27/2010 Overview: Controlled substance agreement for Lortab on file and signed 04/27/10. Designated pharmacy: [facility] Prescribing physician: Stefany Diagnosis: Chronic pain/fibromyalgia Other abnormal Papanicolaou smear of cervix and cervical HPV(795.09) 04/27/2010 Overview: High risk HPV 02/26 Chronic fatigue syndrome 05/26/2009 Fibromyalgia 01/08/2008 Migraine, unspecified, witho ut mention of intractable migraine without mention of status migrainosus 01/08/2008 Resolved Problems Problem Noted Date Diagnosed Date Resolved Date Major depression, recurrent 10/14/2012 06/09/2015 ADHD (attention deficit hype ractivity disorder) 08/26/2012 06/09/2015 Mild intermittent asthma 05/26/200912/2011 Encounters Date Type Department Care Team Description 11/30/2023 11:10 AM MANAGER MOBILE Office Visit [address] [phone] Amelia Vicente NP Follow Up (Urgent Care from 11/09/23 for throat and ears) 11/30/2023 Travel 11/09/2023 1:25 PM MANAGER MOBILE Ancillary Procedure [address] [phone] 11/09/2023 12:00 PM MANAGER MOBILE Office Visit [facility] [address] [place] [phone] Ariadne Rhodes MOTOR EXPRESS CLERK Cough (C/O cough having a bad taste in her mouth. ); Throat Problem (C/O having a sore throat for a week. Had a tightness in her throat. ); Shortness Of Breath (Shortness of breath and has not had any relief from her ventolin inhaler. ) 11/09/2023 Telephone [facility] [address] [place] [address] Ariadne Rhodes NP Results (x-ray) 11/09/2023 Travel 10/17/2023 Telephone [facility] [address] [place] [address] Amelia Vicente NP Appointment Request (RESP ILLNESS) from Last 3 Months Immunizations Name Administration Dates Next Due Pneumococcal Poly,23-Valent (Pneumovax) 11/13/20 17 Tdap 11/25/2010 Family History Medical History Relation Name Comments Good Health Father family hx heart disease Cancer Maternal Grandfather lung & bladder Other Maternal Grandmother emphyse ma in smoker Heart Disease Mother Diabetes Other Mat cousin Cancer Paternal Grandfather leukemi a Diabetes Paternal Grandfather Heart Disease Paternal Grandfather Other Paternal Grandfather fibromy algia Heart Disease Paternal Grandmother Relation Name Status Comments Father Alive Maternal Grandfather Alive Maternal Grandmother Mother Alive Other Mat cousin Alive Paternal Grandfather Paternal Grandmother Alive Social History Tobacco Use Types Packs/Day Years Used Date Smoking Tobacco: Every Day Cigarettes 1 25.9 Started: 01/25/1998 Smokeless Tobacco: Never Tobacco Cessation:Ready to Q uit: No; Counseling Given: Not Answered Comments:starting using the electric cigerettes, still smokes 1/2 half a pack Alcohol Use Standard Drinks/Week Comments Not Currently 0 (1 standard drink = 0.6 oz pur e alcohol) PHQ-2 Answer Date Recorded PHQ-2 Score 1 10/23/2019 Social Connections Answer Date Recorded Frequency of Communication with Friends and Fami ly 0 01/25/2023 Financial Resource Strain Answer Date R ecorded Difficulty of Paying Living Expenses 3 01/25/2023 Difficulty of Paying Living Expenses Not on file 01/25/2023 Food Insecurity Answer Date Recorded Worried About Running Out of Food in the Last Ye ar 1 01/25/2023 Transportation Needs Answer Date Record ed Lack of Transportation (Medical) 1 01/25/2023 Housing Stability Answer Date Recorded Unable to Pay for Housing in the Last Year 1 01/25/2023 Sex and Gender Information Value Date Recorded Sex Assigned at Not on file Gender Identity Not on file Sexual Orientation Not on file Obstetrics History Para Term AB IAB SAB Ectopic Multiple Livin g Live Births 4 3 1 1 3 Date Outcome GA Total Labor Labor/2nd/3rd Weight Sex Delivery Anes PTL Desiree A1 A5 Name Cl in SAB Para Para Para Comments 2 pregnacies had vanishing twins, one was a miscarried twin Last Filed Vital Signs Vital Sign Reading Time Taken Comments Blood Pressure 112/64 11/30/2023 11:25 AM MANAGER MOBILE Pulse 78 11/30/2023 11:25 AM MANAGER MOBILE Temperature 36.8 ??C (98.2 ??F) 11/30/2023 11:[address] Respiratory Rate 16 11/30/2023 11:25 AM MANAGER MOBILE Oxygen Saturation 100% 11/30/2023 11:25 AM MANAGER MOBILE Inhaled Oxygen Concentration - - Weight 68.9 kg (152 lb) 11/30/2023 11:25 AM MANAGER MOBILE Height 157.5 cm (5' 2) 11/25/2019 4:34 PM MANAGER MOBILE Body Mass Index 27.8 11/25/2019 4:34 PM MANAGER MOBILE Plan of Treatment Health Maintenance Due Date Last Done Comments COVID-19 vaccine series (#1) 1974 HIV for age 15-65 1989 Hepatitis C screening for age 18-79 1992 Pneumococcal series for age 6-64 (2 of 2 - PCV) 11/13/2018 11/13/2017 Colonoscopy through age 75 2019 Lipids for age 45-75 06/09/2020 06/09/2015, 02/11/20 14 Depression screening for age 12+ 10/23/2020 10/23/2019, 11/26/2018, 06/04/2018, Additional history exists BMI (ht and wt on same day) for age 18+ 11/25/2020 11/25/2019, 10/23/2019, 05/16/2019, Additional history exists Tetanus booster 11/25/2020 11/25/2010 Mammogram for age 45-75 02/22/2024 02/22/20 23, 11/30/2021, 11/08/2020, Additional history exists Influenza for age 9-49 11/30/2024 Postp oned from 07/20/2023 (Patient discretion) Tdap Completed 11/25/2010 Pap test for age 21-65 Discontinued , 12/06/2020, 06/09/2015, Additional history exists Procedures Procedure Name Priority Date/Time Associated Diagnosis Comments CBC WITH AUTO DIFFERENTIAL Routine 11/30/2023 12:25 PM MANAGER MOBILE Fatigue, unspecified type HEMOGLOBIN A1C SCREENING Routine 11/30/2023 12:25 PM MANAGER MOBILE Diabetes mellitus screening VITAMIN B1 (THIAMINE) BLOOD Routine 11/30/2023 12:25 PM MANAGER MOBILE Fatigue, unspecified type CBC WITH AUTO DIFFERENTIAL Routine 11/30/2023 12:25 PM MANAGER MOBILE Fatigue, unspecified type MAGNESIUM Routine 11/30/2023 12:25 PM MANAGER MOBILE Fatigue, unspecified type COMP METABOLIC PANEL Routine 11/30/2023 12:25 PM MANAGER MOBILE Diabetes mellitus screening TSH Routine 11/30/2023 12:25 PM MANAGER MOBILE Thyroid disorder screening VITAMIN B12 Routine 11/30/2023 12:25 PM MANAGER MOBILE Vitamin B 12 deficiency VITAMIN D 25 (DEFICIENCY) Routine 11/30/2023 12:25 PM MANAGER MOBILE Vitamin D deficiency XR CHEST 2 VIEWS PA AND LATERAL STAT 11/09/2023 1:21 PM MANAGER MOBILE Acute cough STREP A PCR STAT 11/09/2023 12:32 PM MANAGER MOBILE Sore throat THROAT RAPID STREP A WITH REFLEX STAT 11/09/2023 12:32 PM MANAGER MOBILE Sore throat from Last 3 Months Results * VITAMIN B1 (THIAMINE) BLOOD (11/30/2023 12:25 PM MANAGER MOBILE) VITAMIN B1 WHL BLD 81.2 66.5 - 200.0 nmol/L 12/11/2023 5:[address] [facility] TEST[facility] (CET) Blood BLOOD SPECIMEN / Unknown Venipuncture / Unknown 11/30/2023 12:25 PM MANAGER MOBILE 11/30/2023 12:27 PM MANAGER MOBILE Narrative [facility] ES[facility]IC TEST[facility] (CET) - 12/11/2023 5:07 PM MANAGER MOBILE Test(s) 133354-Yua. B1, Whole Blood was developed and its performance characteristics determined by [facility]. It has not been cleared or approved by the Food and Drug Administration. Performed at: ??[address] ??[id number] Injury/Safety Hazard Assessment: Yadi Wilkes MD, Phone: ??[phone] Amelia Vicente MOTOR EXPRESS CLERK SEND OUTS [facility] TEST[facility] (CET) [address] [place] [id number], * CBC WITH AUTO DIFFERENTIAL (11/30/2023 12:25 PM MANAGER MOBILE) WHITE BLOOD COUNT 8.5 4.5 - 11.0 thou/cu mm 11/30/2023 12:57 PM [facility] RED BLOOD COUNT 4.69 4.00 - 5.20 mil/cu mm 11/30/2023 12:57 PM [facility] HEMOGLOBIN 14.6 12.0 - 16.0 g/dL 11/30/2023 12:57 PM [facility] HEMATOCRIT 44.0 33.0 - 51.0 % 11/30/2023 12:57 PM [facility] MCV 94 80 - 100 fL 11/30/2023 12:57 PM [facility] MCH 31.1 26.0 - 34.0 pg 11/30/2023 12:57 PM [facility] MCHC 33.2 32.0 - 36.0 g/dL 11/30/2023 12:57 PM [facility] RDW 12.8 11.5 - 15.5 % 11/30/2023 12:57 PM [facility] PLATELET COUNT 228 140 - 440 thou/cu mm 11/30/2023 12:57 PM [facility] MPV 11.0 6.5 - 11.0 fL 11/30/2023 12:57 PM [facility] % NEUT 64.8 % 11/30/2023 12:57 PM [facility] % LYMPH 24.2 % 11/30/2023 12:57 PM [facility] % MONO 6.8 % 11/30/2023 12:57 PM [facility] % EOS 3.6 % 11/30/2023 12:57 PM [facility] % BASO 0.6 % 11/30/2023 12:57 PM [facility] ABSOLUTE NEUTROPHILS 5.5 1.7 - 7.0 thou/cu mm 11/30/2023 12:57 PM [facility] ABSOLUTE LYMPHOCYTES 2.1 0.9 - 2.9 thou/cu mm 11/30/2023 12:57 PM [facility] ABSOLUTE MONOCYTES 0.6 <0.9 thou/cu mm 11/30/2023 12:57 PM [facility] ABSOLUTE EOSINOPHILS 0.3 <0.5 thou/cu mm 11/30/2023 12:57 PM [facility] ABSOLUTE BASOPHILS 0.1 <0.3 thou/cu mm 11/30/2023 12:57 PM [facility] Blood BLOOD SPECIMEN / Unknown Venipuncture / Unknown 11/30/2023 12:25 PM MANAGER MOBILE 11/30/2023 12:27 PM MANAGER MOBILE Amelia Vicente NP HEMATOLOGY [facility] [address] [place] [address] * HEMOGLOBIN A1C SCREENING (11/30/2023 12:25 PM MANAGER MOBILE) HEMOGLOBIN A1C SCREENING 5.5 <=6.4 % 11/30/2023 12:46 PM [facility] Blood BLOOD SPECIMEN / Unknown Venipuncture / Unknown 11/30/2023 12:25 PM MANAGER MOBILE 11/30/2023 12:27 PM MANAGER MOBILE Narrative [facility] - 11/30/2023 12:46 PM MANAGER MOBILE ? (<5.7%) ?Normal ? (5.7% to 6.4%) ? Indicates prediabetes ? (>=6.5%) ? Confirms diabetes Falsely low levels may be seen with: Recent Transfusion, Recent Significant Blood Loss, Hemolytic Diseases, or Falsely elevated levels may be seen with: Untreated Anemias, Splenectomy Amelia Vicente NP CHEMISTRY Performing Organization Address [facility] Co de Phone Number [facility] [address] [place] [address] * VITAMIN D 25 (DEFICIENCY) (11/30/2023 12:25 PM MANAGER MOBILE) VITAMIN D TOTAL 57.4 20.0 - 80.0 ng/mL 11/30/2023 10:06 PM MANAGER MOBILE [facility] Blood BLOOD SPECIMEN / Unknown Venipuncture / Unknown 11/30/2023 12:25 PM MANAGER MOBILE 11/30/2023 12:27 PM MANAGER MOBILE Narrative [facility] - 11/30/2023 10:06 PM MANAGER MOBILE ? Vitamin D Status Deficiency: ? <20 ng/mL Insufficiency: ?20-29 ng/mL Sufficiency: ?30-80 ng/mL Possible Toxicity: ??>80 ng/mL Based on Hermann of Medicine recommendations Biotin supplements may cause clinically significant interference for this test assay. ??If interference is suspected, it is strongly recommended that biotin is discontinued for at least one week prior to retesting. Amelia Vicente NP SEND OUTS Performing Organization Address [facility] Co de Phone Number [facility] [address] [place] [address], * TSH (11/30/2023 12:25 PM MANAGER MOBILE) TSH 1.78 0.27 - 4.20 uIU/mL 11/30/2023 1:12 PM MANAGER MOBILE [facility] Blood BLOOD SPECIMEN / Unknown Venipuncture / Unknown 11/30/2023 12:25 PM MANAGER MOBILE 11/30/2023 12:27 PM MANAGER MOBILE Narrative [facility] - 11/30/2023 1:12 PM MANAGER MOBILE In Adults, TSH values between 5.00 and 10.00 uIU/ml do not necessarily indicate the presence of Hypothyroidism. Correlation with clinical findings such as presence of goiter and/or Thyroperoxidase (TPO) Antibody may be helpful. For more information please refer to HAFSA 2004; 291: 228-238. Amelia Vicente NP CHEMISTRY Performing Organization Address City/[facility]/ZIP Co de Phone Number [facility] [address] [place] [address] * MAGNESIUM (11/30/2023 12:25 PM MANAGER MOBILE) Pathologist [facility] MAGNESIUM 2.3 1.6 - 2.6 mg/dL 11/30/2023 2:23 PM MANAGER MOBILE [facility] Blood BLOOD SPECIMEN / Unknown Venipuncture / Unknown 11/30/2023 12:25 PM MANAGER MOBILE 11/30/2023 12:27 PM MANAGER MOBILE Amelia Vicente MOTOR EXPRESS CLERK CHEMISTRY [facility] [address] [place] [address] * VITAMIN B12 (11/30/2023 12:25 PM MANAGER MOBILE) VITAMIN B12 311 232 - 1,245 pg/mL 11/30/2023 10:06 PM MANAGER MOBILE [facility] Blood BLOOD SPECIMEN / Unknown Venipuncture / Unknown 11/30/2023 12:25 PM MANAGER MOBILE 11/30/2023 12:27 PM MANAGER MOBILE Narrative [facility] - 11/30/2023 10:06 PM MANAGER MOBILE Biotin supplements may cause clinically significant interference for this test assay. ??If interference is suspected, it is strongly recommended that biotin is discontinued for at least one week prior to retesting. Amelia Vicente NP CHEMISTRY [facility] [address] [place] [address], * (ABNORMAL) COMP METABOLIC PANEL (11/30/2023 12:25 PM MANAGER MOBILE) SODIUM 141 136 - 145 mmol/L 11/30/2023 1:16 PM [facility] POTASSIUM 3.9 3.5 - 5.1 mmol/L 11/30/2023 1:16 PM [facility] CHLORIDE 105 98 - 107 mmol/L 11/30/2023 1:16 PM [facility] CO2,TOTAL 25 22 - 29 mmol/L 11/30/2023 1:16 PM [facility] ANION GAP 11 5 - 18 11/30/2023 1:16 PM [facility] GLUCOSE 94 70 - 99 mg/dL 11/30/2023 1:16 PM [facility] CALCIUM 9.4 8.6 - 10.0 mg/dL 11/30/2023 1:16 PM [facility] BUN 8 6 - 20 mg/dL 11/30/2023 1:16 PM [facility] CREATININE 0.80 0.50 - 0.90 mg/dL 11/30/2023 1:16 PM [facility] BUN/CREAT RATIO 10 10 - 20 1:16 PM [facility] eGFR 90(L) >90 mL/min/1.7 3m2 11/30/2023 1:16 PM [facility] Comment:As of 2022, eG FR is calculated by the CKD-EPI creatinine equation without race adjustment. ??eGFR can be influenced by muscle mass, exercise, and diet. ??The reported eGFR is an estimation only and is only applicable if the renal function is stable. ALBUMIN 4.4 4.0 - 4.9 g/dL 11/30/2023 1:16 PM [facility] PROTEIN,TOTAL 7.3 6.0 - 8.0 g/dL 11/30/2023 1:16 PM [facility] BILIRUBIN,TOTAL 0.8 0.0 - 1.2 mg/dL 11/30/2023 1:16 PM [facility] ALK PHOSPHATASE 71 35 - 104 IU/L 11/30/2023 1:16 PM [facility] ALT (SGPT) <5(L) 10 - 35 IU/L 11/30/2023 1:16 PM [facility] AST (SGOT) 11 10 - 35 IU/L 11/30/2023 1:16 PM [facility] Blood BLOOD SPECIMEN / Unknown Venipuncture / Unknown 11/30/2023 12:25 PM MANAGER MOBILE 11/30/2023 12:27 PM MANAGER MOBILE Amelia Vicente NP CHEMISTRY [facility] [address] [place] [address] * XR CHEST 2 VIEWS PA AND LATERAL (11/09/2023 1:21 PM MANAGER MOBILE) Anatomical Region Laterality Modality CHEST, THORAX, Lung, HEART Compu shaheed Radiography 11/09/2023 2:35 PM MANAGER MOBILE Narrative 11/09/2023 2:35 PM MANAGER MOBILE For Patients: ??As a result of the Century Cures Act, medical imaging exams and procedure reports are released immediately into your electronic medical record. ??You may view this report before your referring provider. ??If you have questions, please contact your health care provider. Indication: Acute cough Technique: Chest 2 views Comparison: Chest x-ray 09/20/2015 Findings/Impression: Cardiovascular and mediastinum: ??Heart size and vasculature are normal in caliber and appearance. ??Mediastinum is within normal limits. ?? Lungs and pleural spaces: ??Lungs are clear. ??No sign of infiltrate or mass. ??No sign of pleural effusion. ??No pneumothorax. ?? Bones and soft tissues: ??No significant findings. Dictated by Carlos Napoles MD @ 11/09/2023 2:35:48 PM (Electronically Signed) Procedure Note Carlos Napoles MD - 11/09/2023 For Patients: As a result of the Cures Act, medical imagingexams and procedure reports are released immediately into your electronicmedical record. You may view this report before your referring provider.If you have questions, please contact your health care provider. Indication: Acute cough Technique: Chest 2 views Comparison: Chest x-ray 09/20/2015 Findings/Impression: Cardiovascular and mediastinum: Heart size and vasculature are normal incaliber and appearance. Mediastinum is within normal limits. Lungs and pleural spaces: Lungs are clear. No sign of infiltrate ormass. No sign of pleural effusion. No pneumothorax. Bones and soft tissues: No significant findings. Dictated by Carlos Napoles MD @ 11/09/2023 2:35:48 PM (Electronically Signed) Authorizing Provider Result Jose De Jesus Rhodes NP GENERAL IMAGING * STREP A PCR (11/09/2023 12:32 PM MANAGER MOBILE) [facility] GROUP A STREP Negative 11/09/2023 11:07 PM MANAGER MOBILE [facility] Throat SPECIMEN FROM THROAT / Unknown Non-Blood / Unknown 11/09/2023 12:32 PM MANAGER MOBILE 11/09/2023 12:54 PM MANAGER MOBILE Narrative Authorizing Provider Result Jose De Jesus Rhodes NP MICROBIOLOGY [facility] [address] [place] [address], * THROAT RAPID STREP A WITH REFLEX [[id number]] - age 0 through 17 yrs (11/09/2023 12:32 PM MANAGER MOBILE) [facility] STREP A ANTIGEN Negative 11/09/2023 12:54 PM MANAGER MOBILE [facility] Comment:PCR to follow. Throat SPECIMEN FROM THROAT / Unknown Non-Blood / Unknown 11/09/2023 12:32 PM MANAGER MOBILE 11/09/2023 12:44 PM MANAGER MOBILE Ariadne Rhodes NP MICROBIOLOGY [facility] [address] [place] [id number] from Last 3 Months Care Teams Arranging Funeral Director Relationship Specialty Start Date End Date Kris Irvin MD [address] [place] [address] PCP - General Family Practice 10/28/20
== END 2023-12-18 09:25 | disposition home or self-care (01) ==
LOC: FBOREF 09:26
PROVIDERS: PCP Family Medicine; Visit Provider Family Medicine
DX: Z13.220 Encounter for screening for lipoid disorders (principal)
CPT/HCPCS: 80061

== ENCOUNTER 2024-02-04 07:28 | Outpatient (CLI) | payer BC, SELFPAY ==
--- NOTE | 2024-02-04 10:40 | W.ANESCHARGE ---
Anesthesia Charges Start Date/Time Anesthesia Start Date: 02/04/24 Anesthesia Start Time: 09:36 Stop Date/Time Anesthesia Stop Date: 02/04/24 Anesthesia Stop Time: 10:15
--- NOTE | 2024-02-04 11:08 | W.ANESCHARGE ---
Anesthesia Charges Start Date/Time Anesthesia Start Date: 02/04/24 Anesthesia Start Time: 09:36 Stop Date/Time Anesthesia Stop Date: 02/04/24 Anesthesia Stop Time: 10:15
== END 2024-02-04 07:29 | disposition home or self-care (01) ==
PROVIDERS: PCP Family Medicine; Visit Provider Surgery
DX: Z12.11 Encounter for screening for malignant neoplasm of colon (principal); K63.5 Polyp of colon; Z83.719 Family history of colon polyps, unspecified
CPT/HCPCS: 00811; 45380; 88305; J2704

== ENCOUNTER 2024-02-09 17:50 | Outpatient (CLI) | payer BC, SELFPAY | END 2024-02-09 17:51 | disposition home or self-care (01) | LOC: AMB 02-12 02:00 | PROVIDERS: PCP Family Medicine; Visit Provider Emergency Medicine | DX: R47.81 Slurred speech (principal); R41.82 Altered mental status, unspecified | CPT/HCPCS: A0998 ==